=== PATIENT | male | born 1955 | race Two or more races ===

== ENCOUNTER 2022-11-27 11:39 | Emergency (ER) | payer SELFPAY ==
[~2022-11-27] VITALS: Ht 172.7 cm; Wt 90.0 kg
[2022-11-27 13:15] VITALS: BP 136/73
[2022-11-27] MEDS ORDERED: ATO40T PO (14:51)
[2022-11-27] MEDS ORDERED: LOSA25TA15 PO (14:51)
== END 2022-11-27 14:59 | disposition home or self-care (01) ==
LOC: ER 11:39
DX: I10 Essential (primary) hypertension (principal); E78.5 Hyperlipidemia, unspecified; Z76.0 Encounter for issue of repeat prescription